=== PATIENT | male | born 1945 | race Caucasian/White ===

== ENCOUNTER 2018-11-04 20:59 | Inpatient (IN) | payer MEDICARE, MEDICAID, OTHER ==
[~2018-11-04] VITALS: Ht 162.6 cm; Wt 52.8 kg
[2018-11-04] MEDS ORDERED: ALBUTEROL (0.083%) 2.5MG/3ML NEB HHN STA (21:47)
[2018-11-04] MEDS ORDERED: IPRATROPIUM BROMIDE (0.02%) 0.5MG/2.5ML NEB HHN STA (21:47)
[2018-11-04] MEDS ORDERED: METHYLPREDNISOLONE SOD SUCC 125 MG/2 ML VIAL IV STA (21:47)
[2018-11-04] MEDS ORDERED: LEVOFLOXACIN 500MG PREMIX 100 ML IV ONE (22:00)
[2018-11-04] MEDS ORDERED: SODIUM CHLORIDE 0.9% 1000ML BAG (SEPSIS BOLUS) IV ONE (22:00)
[2018-11-04] MEDS ORDERED: PIPERACILLIN/TAZ 3.375G PREMIX 50 ML IV ONE (22:00)
[2018-11-04 22:16] LABS: BASOPHILS % 0.5 % (0.0-2.0); EOSINOPHILS % 0.6 % (0.0-5.0); HEMOGLOBIN. 14.3 g/dL (14.0-18.0); LYMPHOCYTES % 22.9 % (20.0-50.0); MEAN CORPUSCULAR HEMOGLOBIN 28.9 pg (28.0-32.0); MEAN CORPUSCULAR VOLUME 88.8 fL (80.0-94.0); MEAN PLATELET VOLUME 9.5 fl (7.4-10.4); MONOCYTES % 7.4 % (2.0-8.0); NEUTROPHILS % 68.6 % (40.0-76.0); PLATELET 212 x1000/uL (130-400); RED BLOOD CELL COUNT 4.96 mill/uL (4.7-6.1)
[2018-11-04 22:25] LABS: INR 1.1; PARTIAL THROMBOPLASTIN TIME 28.2 sec (23.4-31.0); PROTHROMBIN TIME 11.4 sec (9.1-11.1)
[2018-11-04 22:28] LABS: CHLORIDE 113 mEq/L (98-107)
[2018-11-04 22:31] LABS: CLARITY URINE CLEAR (CLEAR); COLOR URINE DARK YELLOW (YELLOW); KETONES URINE TRACE (NEGATIVE); LEUKOCYTE ESTERASE URINE NEGATIVE (NEGATIVE); NITRITE URINE NEGATIVE (NEGATIVE); OCCULT BLOOD URINE TRACE (NEGATIVE); PROTEIN URINE NEGATIVE (NEGATIVE)
[2018-11-04] MEDS ORDERED: LORAZEPAM 2MG/ML CPJ IV ONE (23:00)
[2018-11-05] VITALS (8 sets, daily range): BP systolic 106–140; BP diastolic 60–82
[2018-11-05] MEDS ORDERED: MORPHINE SULFATE 4 MG/ML CPJ (NOT FOR IM USE) IV PRN (05:15)
[2018-11-05] MEDS ORDERED: ONDANSETRON HCL 4MG/2ML INJ IV PRN (05:30)
[2018-11-05] MEDS ORDERED: DEXT 5%/0.45% NACL KCL 20MEQ/L 1,000 ML IV SCH (06:00)
[2018-11-05] MEDS: DEXT 5%/0.45% NACL KCL 20MEQ/L 1,000 ML IV SCH (06:05)
[2018-11-05] MEDS: IPRATROPIUM/ALBUTEROL 0.5-3(2.5)MG/3ML NEB HHN SCH ×4 (08:00→21:10)
[2018-11-05] MEDS ORDERED: PIPERACILLIN/TAZ 3.375G PREMIX 50 ML IV SCH ×2 (08:00→09:00)
[2018-11-05] MEDS: BUDESONIDE 0.5MG/2ML NEB HHN SCH ×3 (08:30→21:10)
[2018-11-05] MEDS ORDERED: VANCOMYCIN 750 MG PREMIX 150 ML IV NR (09:00)
[2018-11-05] MEDS ORDERED: CALC-775 PO (10:30)
[2018-11-05] MEDS ORDERED: LEVO500T2 PO (10:30)
[2018-11-05] MEDS ORDERED: LACT10SO7 PO (10:30)
[2018-11-05] MEDS ORDERED: PANT40TA4 PO (10:30)
[2018-11-05] MEDS ORDERED: ASPI-1158 PO (10:30)
[2018-11-05] MEDS ORDERED: MULT-1116 PO (10:30)
[2018-11-05] MEDS ORDERED: FINA5TAB11 MT (11:27)
[2018-11-05] MEDS ORDERED: TAMS-11 PO (11:27)
[2018-11-05] MEDS ORDERED: DOCU100T PO (11:29)
[2018-11-05] MEDS ORDERED: VANCOMYCIN 500 MG PREMIX 100 ML IV SCH (18:00)
[2018-11-06] VITALS (12 sets, daily range): BP systolic 114–163; BP diastolic 39–86
[2018-11-06] MEDS: IPRATROPIUM/ALBUTEROL 0.5-3(2.5)MG/3ML NEB HHN SCH ×5 (00:26→21:02)
[2018-11-06] MEDS: DEXT 5%/0.45% NACL KCL 20MEQ/L 1,000 ML IV SCH ×3 (03:18→22:15)
[2018-11-06 06:31] LABS: BASOPHILS % 0.3 % (0.0-2.0); EOSINOPHILS % 0.2 % (0.0-5.0); HEMATOCRIT. 35.3 % (42.0-52.0); HEMOGLOBIN. 11.3 g/dL (14.0-18.0); LYMPHOCYTES % 16.3 % (20.0-50.0); MEAN PLATELET VOLUME 10.3 fl (7.4-10.4); MONOCYTES % 6.6 % (2.0-8.0); NEUTROPHILS % 76.6 % (40.0-76.0); PLATELET 177 x1000/uL (130-400); RED BLOOD CELL COUNT 4.05 mill/uL (4.7-6.1); RED CELL DISTRIBUTION WIDTH 15.7 % (11.6-14.6)
[2018-11-06 06:36] LABS: CHLORIDE 111 mEq/L (98-107)
[2018-11-06] MEDS: BUDESONIDE 0.5MG/2ML NEB HHN SCH ×2 (07:20→21:02)
[2018-11-06] MEDS ORDERED: LACTULOSE 20G/30ML UDC NG PRN (18:45)
[2018-11-06] MEDS ORDERED: DOCUSATE SODIUM 250MG CAPSULE PO SCH (18:45)
[2018-11-07] VITALS (12 sets, daily range): BP systolic 112–166; BP diastolic 43–88
[2018-11-07] MEDS: IPRATROPIUM/ALBUTEROL 0.5-3(2.5)MG/3ML NEB HHN SCH ×6 (00:33→20:45)
[2018-11-07 07:17] LABS: BASOPHILS % 0.3 % (0.0-2.0); EOSINOPHILS % 0.4 % (0.0-5.0); HEMATOCRIT. 36.9 % (42.0-52.0); HEMOGLOBIN. 12.2 g/dL (14.0-18.0); LYMPHOCYTES % 12.4 % (20.0-50.0); MEAN CORPUSCULAR HEMOGLOBIN 28.6 pg (28.0-32.0); MEAN CORPUSCULAR VOLUME 86.5 fL (80.0-94.0); MEAN PLATELET VOLUME 9.5 fl (7.4-10.4); MONOCYTES % 6.7 % (2.0-8.0); NEUTROPHILS % 80.2 % (40.0-76.0); PLATELET 192 x1000/uL (130-400); RED BLOOD CELL COUNT 4.27 mill/uL (4.7-6.1); RED CELL DISTRIBUTION WIDTH 15.6 % (11.6-14.6)
[2018-11-07] MEDS: BUDESONIDE 0.5MG/2ML NEB HHN SCH ×2 (07:19→20:45)
[2018-11-07 07:58] LABS: CHLORIDE 104 mEq/L (98-107)
[2018-11-07] MEDS: DOCUSATE SODIUM SUGAR FREE 100MG/10ML UDC NG SCH (09:11)
[2018-11-07] MEDS: DEXT 5%/0.45% NACL KCL 20MEQ/L 1,000 ML IV SCH (12:24)
[2018-11-08] VITALS (8 sets, daily range): BP systolic 99–123; BP diastolic 54–85
[2018-11-08] MEDS: IPRATROPIUM/ALBUTEROL 0.5-3(2.5)MG/3ML NEB HHN SCH ×6 (00:53→20:45)
[2018-11-08] MEDS: DEXT 5%/0.45% NACL KCL 20MEQ/L 1,000 ML IV SCH ×2 (02:01→20:37)
[2018-11-08] MEDS: DOCUSATE SODIUM SUGAR FREE 100MG/10ML UDC NG SCH (10:44)
[2018-11-09] VITALS (7 sets, daily range): BP systolic 83–112; BP diastolic 48–69
[2018-11-09] MEDS: IPRATROPIUM/ALBUTEROL 0.5-3(2.5)MG/3ML NEB HHN SCH ×6 (01:46→20:29)
[2018-11-09] MEDS ORDERED: BUDESONIDE 0.5MG/2ML NEB ONE (07:44)
[2018-11-09] MEDS: DOCUSATE SODIUM SUGAR FREE 100MG/10ML UDC NG SCH (09:15)
[2018-11-09] MEDS: DEXT 5%/0.45% NACL KCL 20MEQ/L 1,000 ML IV SCH (11:23)
[2018-11-09] MEDS ORDERED: LORAZEPAM 2MG/ML CPJ IM PRN (14:45)
[2018-11-09] MEDS: PANTOPRAZOLE SODIUM 40 MG/VIAL IV SCH (21:03)
[2018-11-10] MEDS: IPRATROPIUM/ALBUTEROL 0.5-3(2.5)MG/3ML NEB HHN SCH ×6 (00:42→20:13)
[2018-11-10 04:00] VITALS: BP 122/73
[2018-11-10] MEDS: DEXT 5%/0.45% NACL KCL 20MEQ/L 1,000 ML IV SCH ×2 (06:57→22:57)
[2018-11-10 08:10] VITALS: BP 117/63
[2018-11-10] MEDS: DOCUSATE SODIUM SUGAR FREE 100MG/10ML UDC NG SCH (09:00)
[2018-11-10] MEDS: PANTOPRAZOLE SODIUM 40 MG/VIAL IV SCH ×2 (09:39→20:47)
[2018-11-10 12:55] VITALS: BP 105/55
[2018-11-10] MEDS ORDERED: SODIUM CHLORIDE 0.9% 10ML VIAL ONE (15:40)
[2018-11-10 16:27] LABS: CHLORIDE 103 mEq/L (98-107)
[2018-11-10] MEDS ORDERED: CEFAZOLIN 1000MG PREMIX 50 ML IV SCH (16:50)
[2018-11-10] MEDS ORDERED: FENTANYL CITRATE/PF 50MCG/ML 2ML VIAL ONE (16:55)
[2018-11-10] MEDS ORDERED: MIDAZOLAM HCL 5 MG/5 ML VIAL IV PRN (16:55)
[2018-11-10] MEDS ORDERED: MIDAZOLAM HCL 5 MG/5 ML VIAL ONE (16:55)
[2018-11-10] MEDS ORDERED: FENTANYL CITRATE/PF 50MCG/ML 2ML VIAL IV PRN (16:56)
[2018-11-10] MEDS ORDERED: CEFAZOLIN 1000MG PREMIX 50 ML IV ONE (16:57)
[2018-11-10] MEDS ORDERED: RISP1TAB26 PO (17:15)
[2018-11-10] MEDS ORDERED: PHEN300C6 PO (17:15)
[2018-11-10] MEDS ORDERED: DIVA-75 PO (17:15)
[2018-11-10] MEDS ORDERED: FERR325T6 PO (17:15)
[2018-11-10] MEDS: ENOXAPARIN 40MG/0.4ML SYR SUBCUT SCH (18:36)
[2018-11-10 19:36] VITALS: BP 124/79
[2018-11-10 20:22] LABS: HEMATOCRIT 37.9 % (42.0-52.0); HEMOGLOBIN 12.3 g/dL (14.0-18.0); MEAN CORPUSCULAR HEMOGLOBIN 28.5 pg (28.0-32.0); PLATELET 244 x1000/uL (130-400); RED BLOOD CELL COUNT 4.31 mill/uL (4.7-6.1); RED CELL DISTRIBUTION WIDTH 15.7 % (11.6-14.6)
[2018-11-10 20:28] LABS: INR 1.1; PROTHROMBIN TIME 10.8 sec (9.1-11.1)
[2018-11-10] MEDS: DIVALPROEX SODIUM 250MG DR TABLET PO SCH (20:48)
[2018-11-10] MEDS: RISPERIDONE 1MG TABLET PO SCH (20:48)
[2018-11-10] MEDS: PHENYTOIN SODIUM EXTENDED 100MG CAPSULE PO SCH (20:48)
[2018-11-11] VITALS: BP 116/54
[2018-11-11] MEDS: IPRATROPIUM/ALBUTEROL 0.5-3(2.5)MG/3ML NEB HHN SCH ×6 (01:10→21:31)
[2018-11-11 04:00] VITALS: BP 92/65
[2018-11-11 08:30] VITALS: BP 85/52
[2018-11-11] MEDS: DEXT 5%/0.45% NACL KCL 20MEQ/L 1,000 ML IV SCH ×2 (08:40→10:24)
[2018-11-11] MEDS: RISPERIDONE 1MG TABLET PO SCH ×2 (10:05→20:49)
[2018-11-11] MEDS: DIVALPROEX SODIUM 250MG DR TABLET PO SCH ×2 (10:05→20:49)
[2018-11-11] MEDS: DOCUSATE SODIUM SUGAR FREE 100MG/10ML UDC NG SCH (10:05)
[2018-11-11] MEDS: PANTOPRAZOLE SODIUM 40 MG/VIAL IV SCH ×2 (10:10→20:49)
[2018-11-11 12:14] VITALS: BP 103/55
[2018-11-11] MEDS ORDERED: PHENYTOIN SODIUM 1,000 MG in SODIUM CHLORIDE 0.9% 100 ML IV SCH (13:00)
[2018-11-11 15:45] VITALS: BP 122/87
[2018-11-11] MEDS: ENOXAPARIN 40MG/0.4ML SYR SUBCUT SCH (18:54)
[2018-11-11 20:00] VITALS: BP 116/59
[2018-11-11] MEDS: PHENYTOIN SODIUM EXTENDED 100MG CAPSULE PO SCH (20:49)
[2018-11-12] VITALS: BP 97/54
[2018-11-12] MEDS: IPRATROPIUM/ALBUTEROL 0.5-3(2.5)MG/3ML NEB HHN SCH ×5 (01:15→21:14)
[2018-11-12 04:00] VITALS: BP 98/63
[2018-11-12 08:00] VITALS: BP 93/49
[2018-11-12] MEDS: RISPERIDONE 1MG TABLET PO SCH ×2 (08:34→20:28)
[2018-11-12] MEDS: DIVALPROEX SODIUM 250MG DR TABLET PO SCH (08:35)
[2018-11-12] MEDS: DOCUSATE SODIUM SUGAR FREE 100MG/10ML UDC NG SCH (08:35)
[2018-11-12] MEDS: PANTOPRAZOLE SODIUM 40 MG/VIAL IV SCH ×2 (08:36→20:28)
[2018-11-12] MEDS: VALPROATE SODIUM 250MG/5ML UDC PO SCH ×2 (09:30→20:34)
[2018-11-12 12:00] VITALS: BP_SYST 95; BP_DIAS 5; BP_DIAS 51
[2018-11-12 16:00] VITALS: BP 101/57
[2018-11-12] MEDS: DEXT 5%/0.45% NACL KCL 20MEQ/L 1,000 ML IV SCH (16:11)
[2018-11-12] MEDS: ENOXAPARIN 40MG/0.4ML SYR SUBCUT SCH (18:23)
[2018-11-12 20:11] VITALS: BP 100/59
[2018-11-12] MEDS: PHENYTOIN SODIUM EXTENDED 100MG CAPSULE PO SCH (20:28)
[2018-11-13 00:02] VITALS: BP 103/62
[2018-11-13] MEDS: IPRATROPIUM/ALBUTEROL 0.5-3(2.5)MG/3ML NEB HHN SCH ×6 (00:14→21:11)
[2018-11-13] MEDS: DEXT 5%/0.45% NACL KCL 20MEQ/L 1,000 ML IV SCH ×2 (01:10→12:52)
[2018-11-13 04:00] VITALS: BP 105/60
[2018-11-13 06:51] LABS: BASOPHILS % 0.6 % (0.0-2.0); EOSINOPHILS % 1.3 % (0.0-5.0); HEMOGLOBIN. 10.3 g/dL (14.0-18.0); LYMPHOCYTES % 15.4 % (20.0-50.0); MEAN CORPUSCULAR VOLUME 87.1 fL (80.0-94.0); MEAN PLATELET VOLUME 9.2 fl (7.4-10.4); MONOCYTES % 9.6 % (2.0-8.0); NEUTROPHILS % 73.1 % (40.0-76.0); PLATELET 201 x1000/uL (130-400); RED BLOOD CELL COUNT 3.56 mill/uL (4.7-6.1); RED CELL DISTRIBUTION WIDTH 15.5 % (11.6-14.6)
[2018-11-13 07:06] LABS: CHLORIDE 102 mEq/L (98-107)
[2018-11-13 08:00] VITALS: BP 110/50
[2018-11-13] MEDS: RISPERIDONE 1MG TABLET PO SCH ×2 (09:00→21:44)
[2018-11-13] MEDS: VALPROATE SODIUM 250MG/5ML UDC PO SCH ×2 (09:13→21:44)
[2018-11-13] MEDS: PANTOPRAZOLE SODIUM 40 MG/VIAL IV SCH (09:13)
[2018-11-13] MEDS: DOCUSATE SODIUM SUGAR FREE 100MG/10ML UDC NG SCH (09:19)
[2018-11-13] MEDS ORDERED: BUDESONIDE 0.5MG/2ML NEB ONE (10:04)
[2018-11-13 11:27] VITALS: BP 90/50
[2018-11-13 16:15] VITALS: BP 99/56
[2018-11-13] MEDS: ENOXAPARIN 40MG/0.4ML SYR SUBCUT SCH (19:11)
[2018-11-13 19:58] VITALS: BP 121/58
[2018-11-13] MEDS: PHENYTOIN SODIUM EXTENDED 100MG CAPSULE PO SCH (21:44)
[2018-11-14] VITALS: BP 114/61
[2018-11-14] MEDS: IPRATROPIUM/ALBUTEROL 0.5-3(2.5)MG/3ML NEB HHN SCH ×5 (00:12→17:12)
[2018-11-14 04:00] VITALS: BP 91/48
[2018-11-14] MEDS: DEXT 5%/0.45% NACL KCL 20MEQ/L 1,000 ML IV SCH (05:55)
[2018-11-14 08:00] VITALS: BP 89/49
[2018-11-14] MEDS: RISPERIDONE 1MG TABLET PO SCH (09:00)
[2018-11-14] MEDS: VALPROATE SODIUM 250MG/5ML UDC PO SCH (10:02)
[2018-11-14] MEDS: DOCUSATE SODIUM SUGAR FREE 100MG/10ML UDC NG SCH (10:04)
[2018-11-14 12:11] VITALS: BP 107/61
[2018-11-14] MEDS ORDERED: NA PHOS,M-B/NA PHOS,DI-BA ENEMA 118ML PR SCH (14:15)
[2018-11-14 15:46] VITALS: BP 96/52
[2018-11-14 16:02] VITALS: BP 96/52
== END 2018-11-14 18:26 | DRG 189 ==
LOC: ER 20:59 → 3WST 23:00 → EDBEDREQSVC 23:22 → EDBEDREQ 23:22 → EDBEDREQTM 23:22 → EDBEDREQSVC 23:34 → EDBEDREQTM 23:34 → ENRESERV 11-05 02:42 → 3WST 11-05 04:42 → 6WST 11-08 08:18
PROVIDERS: ADMIT Internal Medicine; ATTEND Internal Medicine
PROC: 0DH63UZ Insertion of Feeding Device into Stomach, Percutaneous Approach (ICD-10-PCS; principal; 2018-11-10)
DX: J96.01 Acute respiratory failure with hypoxia (principal); E43 Unspecified severe protein-calorie malnutrition; E87.0 Hyperosmolality and hypernatremia; J44.1 Chronic obstructive pulmonary disease with (acute) exacerbation; E87.8 Other disorders of electrolyte and fluid balance, not elsewhere classified; G80.9 Cerebral palsy, unspecified; R13.12 Dysphagia, oropharyngeal phase; Z68.20 Body mass index [BMI] 20.0-20.9, adult
CPT/HCPCS: 36415; 71045; 80048; 80185; 82962; 83605; 83880; 84145; 84484; 85027; 87804; 92610; 93005; 93970; 94640; 96365; 96366; 96368; 96375; 97162; 99291; A6261; C1893; C9113; J0690; J1165; J1650; J1956; J2060; J2250; J2270; J2405; J2543; J2930; J3010; J3370; J7030; J7050; J7611; J7620; J7626

== ENCOUNTER 2019-05-15 08:30 | Inpatient (IN) | payer MEDICAID, MEDICARE, OTHER ==
[2019-05-15] VITALS (41 sets, daily range): BP systolic 60–163; BP diastolic 36–85
[~2019-05-15] VITALS: Ht 165.1 cm; Wt 55.5 kg
[~2019-05-15 08:30] MED LIST: ASPI-1158 GT; CALC-775 GT; DIVA-75 GT; DOCU100T GT; FERR325T6 PO; FINA5TAB11 GT; MULT-1116 GT; PANT40TA4 GT; PHEN300C6 GT; RISP1TAB26 PO; TAMS-11 GT
[2019-05-15] MEDS ORDERED: SODIUM CHLORIDE 0.9% 1,000 ML IV ONE (08:34)
[2019-05-15] MEDS ORDERED: ONDANSETRON HCL 4MG/2ML INJ IV STA (08:34)
[2019-05-15] MEDS ORDERED: PANTOPRAZOLE SODIUM 40 MG/VIAL IV ONE (08:45)
[2019-05-15] MEDS ORDERED: KETAMINE HCL 50 MG/ML 10ML IV ONE (08:45)
[2019-05-15] MEDS ORDERED: VECURONIUM BROMIDE 10 MG/VIAL IV ONE (09:00)
[2019-05-15 09:02] LABS: BASOPHILS % 0.5 % (0.0-2.0); HEMATOCRIT. 35.8 % (42.0-52.0); HEMOGLOBIN. 11.3 g/dL (14.0-18.0); LYMPHOCYTES % 11.1 % (20.0-50.0); MEAN CORPUSCULAR HEMOGLOBIN 27.1 pg (28.0-32.0); MEAN CORPUSCULAR VOLUME 86.2 fL (80.0-94.0); MEAN PLATELET VOLUME 11.1 fl (7.4-10.4); MONOCYTES % 7.8 % (2.0-8.0); NEUTROPHILS % 80.6 % (40.0-76.0); PLATELET 305 x1000/uL (130-400); RED BLOOD CELL COUNT 4.15 mill/uL (4.7-6.1); RED CELL DISTRIBUTION WIDTH 14.5 % (11.6-14.6)
[2019-05-15 09:11] LABS: CHLORIDE 102 mEq/L (98-107)
[2019-05-15 09:12] LABS: PROTHROMBIN TIME 10.7 sec (9.6-11.0)
[2019-05-15] MEDS ORDERED: NOREPINEPHRINE 4MG/250ML PMX 250 ML IV ONE ×2 (09:13→13:36)
[2019-05-15] MEDS ORDERED: NOREPINEPHRINE 4 MG in DEXT 5% WATER 246 ML IV ONE ×2 (09:15→14:00)
[2019-05-15] MEDS ORDERED: EPINEPHRINE 0.1MG/ML (1:10,000) 10ML SYR IV ONE (09:15)
[2019-05-15 09:37] LABS: CLARITY URINE CLEAR (CLEAR); COLOR URINE YELLOW (YELLOW); KETONES URINE TRACE (NEGATIVE); LEUKOCYTE ESTERASE URINE NEGATIVE (NEGATIVE); NITRITE URINE NEGATIVE (NEGATIVE); OCCULT BLOOD URINE NEGATIVE (NEGATIVE); PROTEIN URINE NEGATIVE (NEGATIVE); SPECIFIC GRAVITY URINE 1.032 (1.005-1.030); UROBILINOGEN URINE 0.2 E.U./dL (0.2-1.0)
[2019-05-15] MEDS ORDERED: PROPOFOL 10MG/ML 100ML 100 ML IV ONE ×2 (10:00→14:56)
[2019-05-15] MEDS ORDERED: IPRATROPIUM/ALBUTEROL 0.5-3(2.5)MG/3ML NEB HHN PRN (10:30)
[2019-05-15] MEDS ORDERED: MIDAZOLAM HCL 50 MG in DEXTROSE 5% WATER 40 ML IV PRN ×2 (10:30→15:00)
[2019-05-15] MEDS ORDERED: FENTANYL CITRATE/PF 500 MCG in SODIUM CHLORIDE 0.9% 40 ML IV PRN (10:30)
[2019-05-15 10:54] LABS: BG BASE EXCESS 1.6 mmol/L (-2.0-2.0); BG CARBOXYHEMOGLOBIN 0.1 % (0.5-1.5); BG DEOXYHEMOGLOBIN 0.7 % (0.0-5.0); BG FRACTION INSPIRED OXYGEN 80; BG METHEMOGLOBIN 0.4 % (0.0-1.5); BG OXYGEN SATURATION 99.3 % (92.0-98.5); BG OXYHEMOGLOBIN 98.8 % (94.0-97.0); BG PCO2 51.9 mmHg (35.0-45.0); BG PO2 308.5 mmHg (75.0-100.0); BG SAMPLE SITE RIGHT RADIAL; BG TIDAL VOLUME(mL) 500 mL; BG TOTAL HEMOGLOBIN 12.2 g/dL (12.0-18.0); BG VENT MODE VENT - A/C; BG VENT RATE 14 set
[2019-05-15] MEDS ORDERED: MIDAZOLAM HCL 50 MG in DEXTROSE 5% WATER 40 ML IV ONE (11:15)
[2019-05-15] MEDS ORDERED: DIPHENHYDRAMINE 50MG/ML VIAL IV PRN (12:15)
[2019-05-15] MEDS ORDERED: ACETAMINOPHEN 650MG SUPP PR PRN (12:15)
[2019-05-15] MEDS ORDERED: LIDOCAINE HCL 1% 20ML VIAL (Pyxis) INJ ONE (12:39)
[2019-05-15] MEDS ORDERED: SODIUM BICARBONATE 4% (2.4MEQ) 5ML VIAL IV ONE (12:39)
[2019-05-15 12:49] LABS: PHOSPHORUS 2.8 mg/dL (2.5-4.9)
[2019-05-15 14:59] LABS: *AMPHETAMINES SCREEN URINE NEGATIVE (NEGATIVE); *BARBITURATES SCREEN URINE NEGATIVE (NEGATIVE); CANNABINOID URINE SCREEN NEGATIVE (NEGATIVE); OPIATES URINE SCREEN NEGATIVE (NEGATIVE)
[2019-05-15 15:00] LABS: *BENZODIAZEPINES SCREEN URINE NEGATIVE (NEGATIVE); *COCAINE SCREEN URINE NEGATIVE (NEGATIVE); METHADONE URINE SCREEN NEGATIVE (NEGATIVE); PHENCYCLIDINE URINE SCREEN NEGATIVE (NEGATIVE)
[2019-05-15] MEDS ORDERED: DEXTROSE 50% WATER 50ML SYRINGE IV PRN (15:00)
[2019-05-15] MEDS ORDERED: IOHEXOL-300 100 ML BOTTLE ONE (15:15)
[2019-05-15] MEDS: PANTOPRAZOLE SODIUM 40 MG/VIAL IV SCH (16:46)
[2019-05-15] MEDS: SODIUM CHLORIDE 0.9% 1,000 ML IV SCH (16:46)
[2019-05-15] MEDS: MIDAZOLAM HCL 50 MG in DEXTROSE 5% WATER 40 ML IV PRN (16:50)
[2019-05-15] MEDS: FENTANYL CITRATE/PF 500 MCG in SODIUM CHLORIDE 0.9% 40 ML IV PRN (16:52)
[2019-05-15] MEDS ORDERED: FAMOTIDINE 20MG/2ML VIAL IV SCH (17:00)
[2019-05-15] MEDS ORDERED: DIPHENHYDRAMINE 50MG/ML VIAL IM SCH (17:00)
[2019-05-15] MEDS: METHYLPREDNISOLONE SOD SUCC 125 MG/2 ML VIAL IV SCH (17:26)
[2019-05-15] MEDS: BLOOD SUGAR DIAGNOSTIC STRIP TEST SCH (17:34)
[2019-05-15] MEDS: INSULIN LISPRO 100 UNITS/ML SUBCUT SCH (17:35)
[2019-05-15] MEDS: NOREPINEPHRINE 16 MG in DEXT 5% WATER 234 ML IV PRN (17:39)
[2019-05-15] MEDS: PIPERACILLIN/TAZOBACTAM 3.375 G in DEXT 5% WATER 100 ML IV SCH ×2 (17:39→23:01)
[2019-05-15] MEDS: VANCOMYCIN 1 G PREMIX 200 ML IV SCH ×2 (19:28→19:43)
[2019-05-15] MEDS: IPRATROPIUM/ALBUTEROL 0.5-3(2.5)MG/3ML NEB HHN SCH ×2 (20:00→23:50)
[2019-05-15 20:09] LABS: HEMATOCRIT 35.6 % (42.0-52.0); HEMOGLOBIN 11.7 g/dL (14.0-18.0)
[2019-05-15 20:19] LABS: CREATINE KINASE 21 IU/L (39-308)
[2019-05-15 20:20] LABS: CREATINE KINASE MB FRACTION < 1.0 ng/mL (0.5-3.6)
[2019-05-15] MEDS: DIPHENHYDRAMINE 50MG/ML VIAL IV SCH (23:01)
[2019-05-15 23:13] LABS: CREATINE KINASE 17 IU/L (39-308)
[2019-05-15 23:14] LABS: CREATINE KINASE MB FRACTION < 1.0 ng/mL (0.5-3.6)
[2019-05-16] VITALS (93 sets, daily range): BP systolic 74–158; BP diastolic 42–87
[2019-05-16] MEDS: BLOOD SUGAR DIAGNOSTIC STRIP TEST SCH ×2 (00:22→05:30)
[2019-05-16] MEDS: INSULIN LISPRO 100 UNITS/ML SUBCUT SCH ×2 (00:22→05:30)
[2019-05-16] MEDS: METHYLPREDNISOLONE SOD SUCC 125 MG/2 ML VIAL IV SCH ×3 (00:36→17:04)
[2019-05-16] MEDS: IPRATROPIUM/ALBUTEROL 0.5-3(2.5)MG/3ML NEB HHN SCH ×5 (04:01→20:43)
[2019-05-16 05:06] LABS: HEMATOCRIT. 34.1 % (42.0-52.0); HEMOGLOBIN. 11.3 g/dL (14.0-18.0); MEAN CORPUSCULAR HEMOGLOBIN 28.1 pg (28.0-32.0); MEAN PLATELET VOLUME 10.6 fl (7.4-10.4); PLATELET 180 x1000/uL (130-400); RED BLOOD CELL COUNT 4.01 mill/uL (4.7-6.1); RED CELL DISTRIBUTION WIDTH 15.1 % (11.6-14.6)
[2019-05-16 05:12] LABS: CHLORIDE 106 mEq/L (98-107)
[2019-05-16 05:19] LABS: LDL CHOLESTEROL 38 mg/dL (5-100)
[2019-05-16 05:20] LABS: HDL CHOLESTEROL 50 mg/dL (40-59)
[2019-05-16] MEDS: PIPERACILLIN/TAZOBACTAM 3.375 G in DEXT 5% WATER 100 ML IV SCH ×3 (05:20→17:04)
[2019-05-16] MEDS: SODIUM CHLORIDE 0.9% 1,000 ML IV SCH (05:27)
[2019-05-16] MEDS: DIPHENHYDRAMINE 50MG/ML VIAL IV SCH ×4 (05:33→22:01)
[2019-05-16 08:26] LABS: BG BASE EXCESS -2.4 mmol/L (-2.0-2.0); BG CARBOXYHEMOGLOBIN 0.3 % (0.5-1.5); BG DEOXYHEMOGLOBIN 2.1 % (0.0-5.0); BG FRACTION INSPIRED OXYGEN 40; BG HCO3 ACT 21.4 mmol/L (22.0-26.0); BG OXYGEN SATURATION 97.9 % (92.0-98.5); BG OXYHEMOGLOBIN 96.6 % (94.0-97.0); BG PCO2 33.8 mmHg (35.0-45.0); BG PO2 127.6 mmHg (75.0-100.0); BG SAMPLE SITE RIGHT RADIAL; BG TIDAL VOLUME(mL) 500 mL; BG TOTAL HEMOGLOBIN 11.3 g/dL (12.0-18.0); BG VENT MODE VENT - A/C; BG VENT RATE 14 set
[2019-05-16] MEDS: FENTANYL CITRATE/PF 500 MCG in SODIUM CHLORIDE 0.9% 40 ML IV PRN (08:27)
[2019-05-16] MEDS: MIDAZOLAM HCL 50 MG in DEXTROSE 5% WATER 40 ML IV PRN ×2 (08:27→17:13)
[2019-05-16] MEDS: VANCOMYCIN 750 MG PREMIX 150 ML IV SCH ×2 (09:03→21:14)
[2019-05-16] MEDS: PANTOPRAZOLE SODIUM 40 MG/VIAL IV SCH ×2 (09:04→17:04)
[2019-05-16 09:56] LABS: PLATELET ESTIMATE NORMAL
[2019-05-16] MEDS ORDERED: PHENYTOIN SODIUM EXTENDED 100MG CAPSULE PO SCH (11:00)
[2019-05-16 13:08] LABS: HEMATOCRIT 29.1 % (42.0-52.0); HEMOGLOBIN 9.7 g/dL (14.0-18.0)
[2019-05-16] MEDS ORDERED: DIVALPROEX SODIUM 250MG DR TABLET PO SCH (21:00)
[2019-05-16] MEDS: VALPROATE SODIUM 250MG/5ML UDC GT SCH (21:57)
[2019-05-17] VITALS (92 sets, daily range): BP systolic 79–170; BP diastolic 45–98
[2019-05-17] MEDS: FENTANYL CITRATE/PF 500 MCG in SODIUM CHLORIDE 0.9% 40 ML IV PRN ×3 (00:04→18:50)
[2019-05-17] MEDS: METHYLPREDNISOLONE SOD SUCC 125 MG/2 ML VIAL IV SCH ×3 (00:05→16:12)
[2019-05-17] MEDS: PIPERACILLIN/TAZOBACTAM 3.375 G in DEXT 5% WATER 100 ML IV SCH ×5 (00:07→23:31)
[2019-05-17] MEDS: IPRATROPIUM/ALBUTEROL 0.5-3(2.5)MG/3ML NEB HHN SCH ×6 (00:41→20:25)
[2019-05-17] MEDS: MIDAZOLAM HCL 50 MG in DEXTROSE 5% WATER 40 ML IV PRN ×3 (02:20→18:50)
[2019-05-17] MEDS: DIPHENHYDRAMINE 50MG/ML VIAL IV SCH ×4 (04:56→23:31)
[2019-05-17] MEDS: VALPROATE SODIUM 250MG/5ML UDC GT SCH ×3 (05:01→22:45)
[2019-05-17] MEDS: SODIUM CHLORIDE 0.9% 1,000 ML IV SCH ×2 (05:10→14:07)
[2019-05-17 05:44] LABS: HEMOGLOBIN. 9.5 g/dL (14.0-18.0); MEAN CORPUSCULAR VOLUME 85.4 fL (80.0-94.0); MEAN PLATELET VOLUME 10.5 fl (7.4-10.4); PLATELET 159 x1000/uL (130-400); RED BLOOD CELL COUNT 3.28 mill/uL (4.7-6.1); RED CELL DISTRIBUTION WIDTH 14.6 % (11.6-14.6)
[2019-05-17 05:55] LABS: CHLORIDE 106 mEq/L (98-107)
[2019-05-17] MEDS: VANCOMYCIN 750 MG PREMIX 150 ML IV SCH (08:01)
[2019-05-17] MEDS: PHENYTOIN 100 MG/4 ML UDC NG SCH (09:31)
[2019-05-17] MEDS: PANTOPRAZOLE SODIUM 40 MG/VIAL IV SCH ×2 (09:31→16:12)
[2019-05-17 12:01] LABS: PLATELET ESTIMATE NORMAL
[2019-05-17] MEDS: VANCOMYCIN 1 G PREMIX 200 ML IV SCH (18:11)
[2019-05-17] MEDS: NOREPINEPHRINE 16 MG in DEXT 5% WATER 234 ML IV PRN (19:21)
[2019-05-18] VITALS (101 sets, daily range): BP systolic 76–150; BP diastolic 43–103
[2019-05-18] MEDS: IPRATROPIUM/ALBUTEROL 0.5-3(2.5)MG/3ML NEB HHN SCH ×6 (00:40→20:21)
[2019-05-18] MEDS: METHYLPREDNISOLONE SOD SUCC 125 MG/2 ML VIAL IV SCH (02:04)
[2019-05-18] MEDS: PIPERACILLIN/TAZOBACTAM 3.375 G in DEXT 5% WATER 100 ML IV SCH ×3 (05:14→18:29)
[2019-05-18] MEDS: VALPROATE SODIUM 250MG/5ML UDC GT SCH ×3 (05:14→22:08)
[2019-05-18 05:17] LABS: BASOPHILS % 0.1 % (0.0-2.0); HEMATOCRIT. 33.7 % (42.0-52.0); HEMOGLOBIN. 11.2 g/dL (14.0-18.0); MEAN CORPUSCULAR HEMOGLOBIN 28.9 pg (28.0-32.0); MEAN CORPUSCULAR VOLUME 87.3 fL (80.0-94.0); MEAN PLATELET VOLUME 10.9 fl (7.4-10.4); MONOCYTES % 5.7 % (2.0-8.0); NEUTROPHILS % 80.2 % (40.0-76.0); PLATELET 170 x1000/uL (130-400); RED BLOOD CELL COUNT 3.87 mill/uL (4.7-6.1)
[2019-05-18] MEDS: SODIUM CHLORIDE 0.9% 1,000 ML IV SCH ×2 (05:17→23:33)
[2019-05-18 05:26] LABS: CHLORIDE 105 mEq/L (98-107)
[2019-05-18 05:42] LABS: PARTIAL THROMBOPLASTIN TIME 27.8 sec (23.4-31.0); PROTHROMBIN TIME 10.8 sec (9.6-11.0)
[2019-05-18] MEDS: DIPHENHYDRAMINE 50MG/ML VIAL IV SCH ×4 (05:49→22:08)
[2019-05-18] MEDS: VANCOMYCIN 1 G PREMIX 200 ML IV SCH ×2 (05:49→17:00)
[2019-05-18] MEDS: MIDAZOLAM HCL 50 MG in DEXTROSE 5% WATER 40 ML IV PRN ×2 (06:25→13:39)
[2019-05-18] MEDS: FENTANYL CITRATE/PF 500 MCG in SODIUM CHLORIDE 0.9% 40 ML IV PRN ×2 (07:36→17:53)
[2019-05-18] MEDS: PHENYTOIN 100 MG/4 ML UDC NG SCH (09:04)
[2019-05-18] MEDS: PANTOPRAZOLE SODIUM 40 MG/VIAL IV SCH ×2 (09:04→16:16)
[2019-05-18 09:59] LABS: BG CARBOXYHEMOGLOBIN 0.3 % (0.5-1.5); BG DEOXYHEMOGLOBIN 2.3 % (0.0-5.0); BG FRACTION INSPIRED OXYGEN 40; BG HCO3 ACT 23.6 mmol/L (22.0-26.0); BG METHEMOGLOBIN 0.1 % (0.0-1.5); BG OXYGEN SATURATION 97.7 % (92.0-98.5); BG OXYHEMOGLOBIN 97.3 % (94.0-97.0); BG PCO2 30.9 mmHg (35.0-45.0); BG PO2 109.6 mmHg (75.0-100.0); BG SAMPLE SITE RIGHT RADIAL; BG TIDAL VOLUME(mL) 500 mL; BG TOTAL HEMOGLOBIN 11.2 g/dL (12.0-18.0); BG VENT MODE VENT - A/C; BG VENT RATE 14 set
[2019-05-18] MEDS: METHYLPREDNISOLONE SOD SUCC 40 MG/ML VIAL IV SCH (16:16)
[2019-05-19] VITALS (87 sets, daily range): BP systolic 75–173; BP diastolic 38–109
[2019-05-19] MEDS: PIPERACILLIN/TAZOBACTAM 3.375 G in DEXT 5% WATER 100 ML IV SCH ×5 (00:07→23:41)
[2019-05-19] MEDS: METHYLPREDNISOLONE SOD SUCC 40 MG/ML VIAL IV SCH ×3 (00:07→21:30)
[2019-05-19] MEDS: IPRATROPIUM/ALBUTEROL 0.5-3(2.5)MG/3ML NEB HHN SCH ×6 (00:29→20:00)
[2019-05-19] MEDS: MIDAZOLAM HCL 50 MG in DEXTROSE 5% WATER 40 ML IV PRN ×2 (00:35→09:27)
[2019-05-19] MEDS: FENTANYL CITRATE/PF 500 MCG in SODIUM CHLORIDE 0.9% 40 ML IV PRN ×2 (00:37→19:49)
[2019-05-19] MEDS: VANCOMYCIN 1 G PREMIX 200 ML IV SCH (05:01)
[2019-05-19] MEDS: DIPHENHYDRAMINE 50MG/ML VIAL IV SCH ×4 (05:01→23:41)
[2019-05-19 05:20] LABS: HEMATOCRIT. 30.9 % (42.0-52.0); HEMOGLOBIN. 10.1 g/dL (14.0-18.0); MEAN CORPUSCULAR HEMOGLOBIN 28.6 pg (28.0-32.0); MEAN CORPUSCULAR VOLUME 87.4 fL (80.0-94.0); MEAN PLATELET VOLUME 9.8 fl (7.4-10.4); MONOCYTES % 5.9 % (2.0-8.0); NEUTROPHILS % 86.1 % (40.0-76.0); PLATELET 216 x1000/uL (130-400); RED BLOOD CELL COUNT 3.54 mill/uL (4.7-6.1)
[2019-05-19 05:30] LABS: CHLORIDE 107 mEq/L (98-107)
[2019-05-19] MEDS: VALPROATE SODIUM 250MG/5ML UDC GT SCH ×3 (06:29→21:30)
[2019-05-19] MEDS ORDERED: SIMETHICONE 40 MG/0.6 ML 30ML ONE (07:44)
[2019-05-19] MEDS ORDERED: MIDAZOLAM HCL 5 MG/5 ML VIAL ONE (07:50)
[2019-05-19] MEDS ORDERED: FENTANYL CITRATE/PF 50MCG/ML 2ML VIAL ONE (07:50)
[2019-05-19] MEDS ORDERED: MIDAZOLAM HCL 2 MG/2 ML VIAL IV PRN (08:50)
[2019-05-19 09:12] LABS: BG BASE EXCESS -0.4 mmol/L (-2.0-2.0); BG CARBOXYHEMOGLOBIN 0.3 % (0.5-1.5); BG DEOXYHEMOGLOBIN 0.8 % (0.0-5.0); BG FRACTION INSPIRED OXYGEN 100; BG HCO3 ACT 22.1 mmol/L (22.0-26.0); BG METHEMOGLOBIN 0.4 % (0.0-1.5); BG OXYGEN SATURATION 99.2 % (92.0-98.5); BG OXYHEMOGLOBIN 98.5 % (94.0-97.0); BG PCO2 29.6 mmHg (35.0-45.0); BG PO2 311.2 mmHg (75.0-100.0); BG SAMPLE SITE LEFT RADIAL; BG TIDAL VOLUME(mL) 500 mL; BG TOTAL HEMOGLOBIN 12.3 g/dL (12.0-18.0); BG VENT MODE VENT - A/C; BG VENT RATE 12 set
[2019-05-19] MEDS: PHENYTOIN 100 MG/4 ML UDC NG SCH (09:27)
[2019-05-19] MEDS: PANTOPRAZOLE SODIUM 40 MG/VIAL IV SCH ×2 (09:27→16:34)
[2019-05-19] MEDS ORDERED: BACTERIOSTATIC SODIUM CHLORIDE 0.9% 30ML VIAL IJ ONE (10:46)
[2019-05-19 11:40] LABS: BG BASE EXCESS 0.4 mmol/L (-2.0-2.0); BG CARBOXYHEMOGLOBIN 0.1 % (0.5-1.5); BG DEOXYHEMOGLOBIN 3.5 % (0.0-5.0); BG FRACTION INSPIRED OXYGEN 40; BG HCO3 ACT 24.4 mmol/L (22.0-26.0); BG METHEMOGLOBIN 0.2 % (0.0-1.5); BG OXYGEN SATURATION 96.5 % (92.0-98.5); BG OXYHEMOGLOBIN 96.2 % (94.0-97.0); BG PCO2 36.9 mmHg (35.0-45.0); BG PH 7.438 (7.350-7.450); BG PO2 88.8 mmHg (75.0-100.0); BG PRESSURE SUPPORT 8; BG SAMPLE SITE RIGHT RADIAL; BG TOTAL HEMOGLOBIN 12.1 g/dL (12.0-18.0); BG VENT MODE VENT - CPAP
[2019-05-19] MEDS ORDERED: LORAZEPAM 2MG/ML CPJ IV NR (13:45)
[2019-05-19] MEDS: MORPHINE SULFATE 2 MG/ML CPJ (NOT FOR IM USE) IV PRN (14:55)
[2019-05-19] MEDS: SODIUM CHLORIDE 0.9% 1,000 ML IV SCH (16:34)
[2019-05-19] MEDS: LORAZEPAM 2MG/ML CPJ IV PRN (17:23)
[2019-05-20] VITALS (89 sets, daily range): BP systolic 78–149; BP diastolic 23–102
[2019-05-20] MEDS: IPRATROPIUM/ALBUTEROL 0.5-3(2.5)MG/3ML NEB HHN SCH ×6 (00:18→21:00)
[2019-05-20] MEDS: MIDAZOLAM HCL 50 MG in DEXTROSE 5% WATER 40 ML IV PRN (02:26)
[2019-05-20] MEDS: PIPERACILLIN/TAZOBACTAM 3.375 G in DEXT 5% WATER 100 ML IV SCH ×4 (05:03→23:10)
[2019-05-20] MEDS: VALPROATE SODIUM 250MG/5ML UDC GT SCH ×3 (05:03→21:34)
[2019-05-20] MEDS: DIPHENHYDRAMINE 50MG/ML VIAL IV SCH ×4 (05:04→22:44)
[2019-05-20] MEDS: FENTANYL CITRATE/PF 500 MCG in SODIUM CHLORIDE 0.9% 40 ML IV PRN (05:15)
[2019-05-20] MEDS: LORAZEPAM 2MG/ML CPJ IV PRN ×3 (07:48→19:45)
[2019-05-20] MEDS: PHENYTOIN 100 MG/4 ML UDC NG SCH (08:14)
[2019-05-20] MEDS: PANTOPRAZOLE SODIUM 40 MG/VIAL IV SCH ×2 (08:14→18:20)
[2019-05-20] MEDS: METHYLPREDNISOLONE SOD SUCC 40 MG/ML VIAL IV SCH ×2 (08:14→20:29)
[2019-05-20 09:31] LABS: BG BASE EXCESS -1.7 mmol/L (-2.0-2.0); BG DEOXYHEMOGLOBIN 2.9 % (0.0-5.0); BG FRACTION INSPIRED OXYGEN 40; BG HCO3 ACT 22.7 mmol/L (22.0-26.0); BG METHEMOGLOBIN 0.3 % (0.0-1.5); BG OXYGEN SATURATION 97.1 % (92.0-98.5); BG OXYHEMOGLOBIN 96.8 % (94.0-97.0); BG PCO2 37.6 mmHg (35.0-45.0); BG PH 7.399 (7.350-7.450); BG PO2 91.8 mmHg (75.0-100.0); BG PRESSURE SUPPORT 8; BG SAMPLE SITE LEFT BRACHIAL; BG TOTAL HEMOGLOBIN 13.1 g/dL (12.0-18.0); BG VENT MODE VENT - CPAP
[2019-05-20] MEDS: SODIUM CHLORIDE 0.9% 1,000 ML IV SCH (11:04)
[2019-05-20] MEDS: MORPHINE SULFATE 2 MG/ML CPJ (NOT FOR IM USE) IV PRN ×2 (11:05→20:29)
[2019-05-20 12:16] LABS: HEMATOCRIT. 36.7 % (42.0-52.0); HEMOGLOBIN. 11.8 g/dL (14.0-18.0); MEAN CORPUSCULAR HEMOGLOBIN 28.1 pg (28.0-32.0); MEAN CORPUSCULAR VOLUME 87.1 fL (80.0-94.0); MEAN PLATELET VOLUME 9.4 fl (7.4-10.4); PLATELET 240 x1000/uL (130-400); RED BLOOD CELL COUNT 4.22 mill/uL (4.7-6.1); RED CELL DISTRIBUTION WIDTH 15.6 % (11.6-14.6)
[2019-05-20 12:57] LABS: CHLORIDE 105 mEq/L (98-107)
[2019-05-20 14:04] LABS: PLATELET ESTIMATE NORMAL
[2019-05-21] VITALS (58 sets, daily range): BP systolic 92–151; BP diastolic 57–99
[2019-05-21] MEDS: MORPHINE SULFATE 2 MG/ML CPJ (NOT FOR IM USE) IV PRN ×3 (01:09→21:37)
[2019-05-21] MEDS: SODIUM CHLORIDE 0.9% 1,000 ML IV SCH ×2 (03:12→17:45)
[2019-05-21] MEDS: LORAZEPAM 2MG/ML CPJ IV PRN ×3 (04:04→19:52)
[2019-05-21] MEDS: DIPHENHYDRAMINE 50MG/ML VIAL IV SCH ×4 (04:06→23:00)
[2019-05-21] MEDS: IPRATROPIUM/ALBUTEROL 0.5-3(2.5)MG/3ML NEB HHN SCH ×6 (04:25→20:45)
[2019-05-21] MEDS: VALPROATE SODIUM 250MG/5ML UDC GT SCH ×3 (05:08→21:39)
[2019-05-21] MEDS: PIPERACILLIN/TAZOBACTAM 3.375 G in DEXT 5% WATER 100 ML IV SCH ×3 (05:08→17:38)
[2019-05-21 06:00] LABS: BASOPHILS % 0.1 % (0.0-2.0); EOSINOPHILS % 0.2 % (0.0-5.0); HEMATOCRIT. 37.8 % (42.0-52.0); HEMOGLOBIN. 12.2 g/dL (14.0-18.0); LYMPHOCYTES % 11.7 % (20.0-50.0); MEAN CORPUSCULAR HEMOGLOBIN 28.3 pg (28.0-32.0); MEAN PLATELET VOLUME 9.6 fl (7.4-10.4); PLATELET 264 x1000/uL (130-400); RED BLOOD CELL COUNT 4.29 mill/uL (4.7-6.1); RED CELL DISTRIBUTION WIDTH 15.4 % (11.6-14.6)
[2019-05-21 06:15] LABS: CHLORIDE 107 mEq/L (98-107)
[2019-05-21] MEDS: METHYLPREDNISOLONE SOD SUCC 40 MG/ML VIAL IV SCH (08:57)
[2019-05-21] MEDS: PANTOPRAZOLE SODIUM 40 MG/VIAL IV SCH ×2 (08:57→17:38)
[2019-05-21] MEDS: PHENYTOIN 100 MG/4 ML UDC NG SCH (08:57)
[2019-05-21 10:30] LABS: BG BASE EXCESS 2.4 mmol/L (-2.0-2.0); BG CARBOXYHEMOGLOBIN 0.3 % (0.5-1.5); BG DEOXYHEMOGLOBIN 12.7 % (0.0-5.0); BG FRACTION INSPIRED OXYGEN 100; BG HCO3 ACT 26.3 mmol/L (22.0-26.0); BG METHEMOGLOBIN 0.1 % (0.0-1.5); BG OXYGEN SATURATION 87.2 % (92.0-98.5); BG OXYHEMOGLOBIN 86.9 % (94.0-97.0); BG PCO2 38.3 mmHg (35.0-45.0); BG PH 7.455 (7.350-7.450); BG PO2 49.9 mmHg (75.0-100.0); BG SAMPLE SITE RIGHT BRACHIAL; BG TOTAL HEMOGLOBIN 12.3 g/dL (12.0-18.0); BG VENT MODE MASK - NRB
[2019-05-21] MEDS: METOCLOPRAMIDE HCL 10MG/2ML VIAL IV SCH ×2 (11:47→17:38)
[2019-05-21 13:48] LABS: BG BASE EXCESS 5.6 mmol/L (-2.0-2.0); BG DEOXYHEMOGLOBIN 8.1 % (0.0-5.0); BG FRACTION INSPIRED OXYGEN 100; BG HCO3 ACT 29.9 mmol/L (22.0-26.0); BG METHEMOGLOBIN 0.2 % (0.0-1.5); BG OXYGEN SATURATION 91.9 % (92.0-98.5); BG OXYHEMOGLOBIN 91.7 % (94.0-97.0); BG PCO2 42.4 mmHg (35.0-45.0); BG PH 7.466 (7.350-7.450); BG PO2 58.1 mmHg (75.0-100.0); BG SAMPLE SITE LEFT RADIAL; BG TOTAL HEMOGLOBIN 12.1 g/dL (12.0-18.0); BG VENT MODE VAPOTHERM
[2019-05-21] MEDS: ACETYLCYSTEINE 100MG/ML 10% VIAL 4ML INH SCH (15:31)
[2019-05-21 21:06] LABS: HEMATOCRIT 33.8 % (42.0-52.0)
[2019-05-22] VITALS (32 sets, daily range): BP systolic 98–192; BP diastolic 37–97
[2019-05-22] MEDS: ACETYLCYSTEINE 100MG/ML 10% VIAL 4ML INH SCH ×3 (00:20→16:10)
[2019-05-22] MEDS: IPRATROPIUM/ALBUTEROL 0.5-3(2.5)MG/3ML NEB HHN SCH ×6 (00:20→20:50)
[2019-05-22] MEDS: PIPERACILLIN/TAZOBACTAM 3.375 G in DEXT 5% WATER 100 ML IV SCH ×4 (01:14→17:04)
[2019-05-22] MEDS: MORPHINE SULFATE 2 MG/ML CPJ (NOT FOR IM USE) IV PRN (03:07)
[2019-05-22 04:54] LABS: BASOPHILS % 0.1 % (0.0-2.0); EOSINOPHILS % 6.2 % (0.0-5.0); HEMATOCRIT. 31.9 % (42.0-52.0); HEMOGLOBIN. 10.4 g/dL (14.0-18.0); LYMPHOCYTES % 11.3 % (20.0-50.0); MEAN CORPUSCULAR HEMOGLOBIN 28.4 pg (28.0-32.0); MEAN PLATELET VOLUME 8.7 fl (7.4-10.4); MONOCYTES % 10.2 % (2.0-8.0); NEUTROPHILS % 72.2 % (40.0-76.0); PLATELET 221 x1000/uL (130-400); RED BLOOD CELL COUNT 3.66 mill/uL (4.7-6.1); RED CELL DISTRIBUTION WIDTH 15.4 % (11.6-14.6)
[2019-05-22 05:03] LABS: CHLORIDE 106 mEq/L (98-107)
[2019-05-22] MEDS: DIPHENHYDRAMINE 50MG/ML VIAL IV SCH ×4 (06:10→23:23)
[2019-05-22] MEDS: METOCLOPRAMIDE HCL 10MG/2ML VIAL IV SCH ×5 (06:10→23:23)
[2019-05-22] MEDS: VALPROATE SODIUM 250MG/5ML UDC GT SCH ×3 (06:10→23:24)
[2019-05-22 09:28] LABS: BG CARBOXYHEMOGLOBIN 0.5 % (0.5-1.5); BG DEOXYHEMOGLOBIN 4.8 % (0.0-5.0); BG FRACTION INSPIRED OXYGEN 100; BG HCO3 ACT 25.6 mmol/L (22.0-26.0); BG METHEMOGLOBIN 0.1 % (0.0-1.5); BG OXYGEN SATURATION 95.2 % (92.0-98.5); BG OXYHEMOGLOBIN 94.6 % (94.0-97.0); BG PCO2 36.4 mmHg (35.0-45.0); BG PH 7.465 (7.350-7.450); BG PO2 72.6 mmHg (75.0-100.0); BG SAMPLE SITE LEFT RADIAL; BG VENT MODE VAPOTHERM
[2019-05-22] MEDS: PANTOPRAZOLE SODIUM 40 MG/VIAL IV SCH ×2 (09:45→17:04)
[2019-05-22] MEDS: PHENYTOIN 100 MG/4 ML UDC NG SCH (09:45)
[2019-05-22] MEDS: LORAZEPAM 2MG/ML CPJ IV PRN ×2 (09:48→20:15)
[2019-05-22] MEDS: SODIUM CHLORIDE 0.9% 1,000 ML IV SCH (11:10)
[2019-05-22] MEDS: ONDANSETRON HCL 4MG/2ML INJ IV PRN (17:04)
[2019-05-23] VITALS (26 sets, daily range): BP systolic 103–164; BP diastolic 52–105
[2019-05-23] MEDS: ACETYLCYSTEINE 100MG/ML 10% VIAL 4ML INH SCH ×3 (00:46→16:36)
[2019-05-23] MEDS: IPRATROPIUM/ALBUTEROL 0.5-3(2.5)MG/3ML NEB HHN SCH ×6 (00:46→20:48)
[2019-05-23] MEDS: VALPROATE SODIUM 250MG/5ML UDC GT SCH ×3 (05:00→22:03)
[2019-05-23] MEDS: DIPHENHYDRAMINE 50MG/ML VIAL IV SCH ×4 (05:00→22:03)
[2019-05-23] MEDS: SODIUM CHLORIDE 0.9% 1,000 ML IV SCH ×2 (05:01→22:33)
[2019-05-23] MEDS: MORPHINE SULFATE 2 MG/ML CPJ (NOT FOR IM USE) IV PRN (05:02)
[2019-05-23 05:10] LABS: BASOPHILS % 0.4 % (0.0-2.0); EOSINOPHILS % 4.9 % (0.0-5.0); HEMATOCRIT. 34.8 % (42.0-52.0); HEMOGLOBIN. 11.2 g/dL (14.0-18.0); MEAN CORPUSCULAR HEMOGLOBIN 28.1 pg (28.0-32.0); MEAN CORPUSCULAR VOLUME 87.3 fL (80.0-94.0); MONOCYTES % 12.4 % (2.0-8.0); NEUTROPHILS % 74.3 % (40.0-76.0); PLATELET 263 x1000/uL (130-400); RED BLOOD CELL COUNT 3.98 mill/uL (4.7-6.1); RED CELL DISTRIBUTION WIDTH 15.5 % (11.6-14.6)
[2019-05-23 05:18] LABS: CHLORIDE 104 mEq/L (98-107)
[2019-05-23] MEDS: METOCLOPRAMIDE HCL 10MG/2ML VIAL IV SCH ×4 (05:30→23:18)
[2019-05-23] MEDS: PHENYTOIN 100 MG/4 ML UDC NG SCH (08:51)
[2019-05-23] MEDS: PANTOPRAZOLE SODIUM 40 MG/VIAL IV SCH ×2 (08:51→16:50)
[2019-05-23 12:09] LABS: BG BASE EXCESS 5.1 mmol/L (-2.0-2.0); BG CARBOXYHEMOGLOBIN 0.6 % (0.5-1.5); BG DEOXYHEMOGLOBIN 12.2 % (0.0-5.0); BG FRACTION INSPIRED OXYGEN 97; BG HCO3 ACT 28.2 mmol/L (22.0-26.0); BG METHEMOGLOBIN 0.2 % (0.0-1.5); BG OXYGEN SATURATION 87.7 % (92.0-98.5); BG PCO2 35.9 mmHg (35.0-45.0); BG PH 7.513 (7.350-7.450); BG PO2 49.7 mmHg (75.0-100.0); BG SAMPLE SITE LEFT RADIAL; BG TOTAL HEMOGLOBIN 11.6 g/dL (12.0-18.0); BG VENT MODE VAPOTHERM
[2019-05-23 12:54] LABS: BG BASE EXCESS 4.6 mmol/L (-2.0-2.0); BG CARBOXYHEMOGLOBIN 0.3 % (0.5-1.5); BG DEOXYHEMOGLOBIN 4.1 % (0.0-5.0); BG FRACTION INSPIRED OXYGEN 97; BG HCO3 ACT 27.4 mmol/L (22.0-26.0); BG METHEMOGLOBIN 0.2 % (0.0-1.5); BG OXYGEN SATURATION 95.9 % (92.0-98.5); BG OXYHEMOGLOBIN 95.4 % (94.0-97.0); BG PCO2 34.3 mmHg (35.0-45.0); BG PO2 76.7 mmHg (75.0-100.0); BG SAMPLE SITE LEFT RADIAL; BG TOTAL HEMOGLOBIN 11.3 g/dL (12.0-18.0); BG VENT MODE VAPOTHERM
[2019-05-23] MEDS: LORAZEPAM 2MG/ML CPJ IV PRN ×2 (19:46→23:18)
[2019-05-23] MEDS: ONDANSETRON HCL 4MG/2ML INJ IV PRN (23:18)
[2019-05-24] VITALS (76 sets, daily range): BP systolic 68–156; BP diastolic 44–106
[2019-05-24] MEDS: IPRATROPIUM/ALBUTEROL 0.5-3(2.5)MG/3ML NEB HHN SCH ×6 (00:45→20:53)
[2019-05-24] MEDS: ACETYLCYSTEINE 100MG/ML 10% VIAL 4ML INH SCH ×3 (00:46→15:33)
[2019-05-24 04:46] LABS: HEMOGLOBIN. 10.7 g/dL (14.0-18.0); MEAN CORPUSCULAR HEMOGLOBIN 29.2 pg (28.0-32.0); MEAN CORPUSCULAR VOLUME 87.6 fL (80.0-94.0); MEAN PLATELET VOLUME 8.3 fl (7.4-10.4); PLATELET 294 x1000/uL (130-400); RED BLOOD CELL COUNT 3.66 mill/uL (4.7-6.1); RED CELL DISTRIBUTION WIDTH 15.5 % (11.6-14.6)
[2019-05-24 04:55] LABS: CHLORIDE 107 mEq/L (98-107)
[2019-05-24] MEDS: VALPROATE SODIUM 250MG/5ML UDC GT SCH ×3 (05:16→22:48)
[2019-05-24] MEDS: METOCLOPRAMIDE HCL 10MG/2ML VIAL IV SCH ×3 (05:16→18:00)
[2019-05-24] MEDS: ONDANSETRON HCL 4MG/2ML INJ IV PRN (05:16)
[2019-05-24] MEDS: DIPHENHYDRAMINE 50MG/ML VIAL IV SCH ×4 (05:18→22:53)
[2019-05-24] MEDS: LORAZEPAM 2MG/ML CPJ IV PRN (06:32)
[2019-05-24] MEDS: PHENYTOIN 100 MG/4 ML UDC NG SCH (09:00)
[2019-05-24] MEDS: PANTOPRAZOLE SODIUM 40 MG/VIAL IV SCH ×2 (09:24→18:00)
[2019-05-24 10:12] LABS: BG BASE EXCESS 1.8 mmol/L (-2.0-2.0); BG CARBOXYHEMOGLOBIN 0.5 % (0.5-1.5); BG DEOXYHEMOGLOBIN 9.2 % (0.0-5.0); BG FRACTION INSPIRED OXYGEN 98; BG HCO3 ACT 26.5 mmol/L (22.0-26.0); BG METHEMOGLOBIN 0.3 % (0.0-1.5); BG OXYGEN SATURATION 90.7 % (92.0-98.5); BG PCO2 41.8 mmHg (35.0-45.0); BG SAMPLE SITE RIGHT RADIAL; BG TOTAL HEMOGLOBIN 11.2 g/dL (12.0-18.0); BG VENT MODE VAPOTHERM
[2019-05-24] MEDS ORDERED: SODIUM CHLORIDE 0.9% 250 ML IV ONE (10:15)
[2019-05-24] MEDS: NOREPINEPHRINE 16 MG in DEXT 5% WATER 234 ML IV PRN (11:31)
[2019-05-24] MEDS: SODIUM CHLORIDE 0.9% 1,000 ML IV SCH (11:32)
[2019-05-24] MEDS ORDERED: NA PHOS,M-B/NA PHOS,DI-BA ENEMA 118ML PR NR (11:45)
[2019-05-24] MEDS ORDERED: MAGNESIUM HYDROXIDE 400MG/5ML 30ML UDC PO PRN (11:45)
[2019-05-24 14:37] LABS: PLATELET ESTIMATE NORMAL
[2019-05-24 15:26] LABS: BG BASE EXCESS -1.7 mmol/L (-2.0-2.0); BG BILEVEL POS AIRWAY PRESSURE 15/7; BG CARBOXYHEMOGLOBIN 0.3 % (0.5-1.5); BG DEOXYHEMOGLOBIN 13.1 % (0.0-5.0); BG FRACTION INSPIRED OXYGEN 100; BG HCO3 ACT 23.1 mmol/L (22.0-26.0); BG METHEMOGLOBIN 0.3 % (0.0-1.5); BG OXYGEN SATURATION 86.8 % (92.0-98.5); BG OXYHEMOGLOBIN 86.3 % (94.0-97.0); BG PCO2 39.3 mmHg (35.0-45.0); BG PH 7.387 (7.350-7.450); BG PO2 54.3 mmHg (75.0-100.0); BG SAMPLE SITE RIGHT RADIAL; BG TOTAL HEMOGLOBIN 10.7 g/dL (12.0-18.0); BG VENT MODE MASK - BIPAP; BG VENT RATE 18 set
[2019-05-24 15:40] LABS: HEMATOCRIT 33.3 % (42.0-52.0); HEMOGLOBIN 10.4 g/dL (14.0-18.0)
[2019-05-24] MEDS ORDERED: MIDAZOLAM HCL 50 MG in DEXTROSE 5% WATER 40 ML IV PRN (16:30)
[2019-05-24 16:42] LABS: BG CARBOXYHEMOGLOBIN 0.3 % (0.5-1.5); BG DEOXYHEMOGLOBIN 11.3 % (0.0-5.0); BG FRACTION INSPIRED OXYGEN 100; BG HCO3 ACT 24.6 mmol/L (22.0-26.0); BG METHEMOGLOBIN 0.2 % (0.0-1.5); BG OXYGEN SATURATION 88.6 % (92.0-98.5); BG OXYHEMOGLOBIN 88.2 % (94.0-97.0); BG PCO2 44.8 mmHg (35.0-45.0); BG PH 7.357 (7.350-7.450); BG PO2 59.6 mmHg (75.0-100.0); BG SAMPLE SITE RIGHT RADIAL; BG TIDAL VOLUME(mL) 500 mL; BG TOTAL HEMOGLOBIN 10.8 g/dL (12.0-18.0); BG VENT MODE VENT - A/C; BG VENT RATE 14 set
[2019-05-24] MEDS ORDERED: NOREPINEPHRINE 32 MG in DEXT 5% WATER 468 ML IV PRN (20:10)
[2019-05-24] MEDS ORDERED: MIDAZOLAM HCL 100 MG in DEXTROSE 5% WATER 80 ML IV PRN (20:10)
[2019-05-24] MEDS: GUAIFENESIN 600MG ER TABLET PO SCH (21:00)
[2019-05-25] VITALS (97 sets, daily range): BP systolic 83–150; BP diastolic 38–95
[2019-05-25] MEDS: METOCLOPRAMIDE HCL 10MG/2ML VIAL IV SCH ×5 (00:25→23:08)
[2019-05-25] MEDS: CEFEPIME 2,000 MG in DEXT 5% WATER 100 ML IV SCH ×3 (00:40→23:09)
[2019-05-25] MEDS: MIDAZOLAM HCL 100 MG in DEXT 5% WATER 80 ML IV PRN ×2 (00:44→17:51)
[2019-05-25] MEDS: ACETYLCYSTEINE 100MG/ML 10% VIAL 4ML INH SCH ×3 (00:50→16:30)
[2019-05-25] MEDS: IPRATROPIUM/ALBUTEROL 0.5-3(2.5)MG/3ML NEB HHN SCH ×6 (00:50→20:33)
[2019-05-25] MEDS: SODIUM CHLORIDE 0.9% 1,000 ML IV SCH ×2 (02:17→17:51)
[2019-05-25] MEDS: VALPROATE SODIUM 250MG/5ML UDC GT SCH ×3 (05:12→21:32)
[2019-05-25] MEDS: DIPHENHYDRAMINE 50MG/ML VIAL IV SCH (05:12)
[2019-05-25 06:26] LABS: CHLORIDE 111 mEq/L (98-107)
[2019-05-25 07:02] LABS: HEMATOCRIT. 29.2 % (42.0-52.0); HEMOGLOBIN. 9.2 g/dL (14.0-18.0); MEAN CORPUSCULAR HEMOGLOBIN 28.1 pg (28.0-32.0); MEAN CORPUSCULAR VOLUME 89.2 fL (80.0-94.0); MEAN PLATELET VOLUME 8.9 fl (7.4-10.4); PLATELET 234 x1000/uL (130-400); RED BLOOD CELL COUNT 3.28 mill/uL (4.7-6.1); RED CELL DISTRIBUTION WIDTH 15.7 % (11.6-14.6)
[2019-05-25 08:54] LABS: PLATELET ESTIMATE NORMAL
[2019-05-25] MEDS: GUAIFENESIN 600MG ER TABLET PO SCH (09:00)
[2019-05-25 09:03] LABS: BG BASE EXCESS 0.1 mmol/L (-2.0-2.0); BG CARBOXYHEMOGLOBIN 0.1 % (0.5-1.5); BG DEOXYHEMOGLOBIN 1.3 % (0.0-5.0); BG FRACTION INSPIRED OXYGEN 80; BG HCO3 ACT 24.7 mmol/L (22.0-26.0); BG METHEMOGLOBIN 0.4 % (0.0-1.5); BG OXYGEN SATURATION 98.7 % (92.0-98.5); BG OXYHEMOGLOBIN 98.2 % (94.0-97.0); BG PH 7.409 (7.350-7.450); BG PO2 148.1 mmHg (75.0-100.0); BG SAMPLE SITE RIGHT RADIAL; BG TIDAL VOLUME(mL) 500 mL; BG TOTAL HEMOGLOBIN 10.5 g/dL (12.0-18.0); BG VENT MODE VENT - A/C; BG VENT RATE 14 set
[2019-05-25] MEDS: PHENYTOIN 100 MG/4 ML UDC NG SCH (09:30)
[2019-05-25] MEDS: PANTOPRAZOLE SODIUM 40 MG/VIAL IV SCH ×2 (09:30→17:49)
[2019-05-26] VITALS (66 sets, daily range): BP systolic 75–159; BP diastolic 39–106
[2019-05-26] MEDS: ACETYLCYSTEINE 100MG/ML 10% VIAL 4ML INH SCH ×3 (00:23→15:43)
[2019-05-26] MEDS: IPRATROPIUM/ALBUTEROL 0.5-3(2.5)MG/3ML NEB HHN SCH ×6 (00:23→20:15)
[2019-05-26] MEDS: METOCLOPRAMIDE HCL 10MG/2ML VIAL IV SCH ×3 (05:43→21:29)
[2019-05-26] MEDS: VALPROATE SODIUM 250MG/5ML UDC GT SCH ×3 (05:43→21:28)
[2019-05-26 05:44] LABS: BASOPHILS % 0.5 % (0.0-2.0); EOSINOPHILS % 1.9 % (0.0-5.0); HEMOGLOBIN. 8.3 g/dL (14.0-18.0); LYMPHOCYTES % 8.1 % (20.0-50.0); MEAN CORPUSCULAR HEMOGLOBIN 28.8 pg (28.0-32.0); MEAN CORPUSCULAR VOLUME 86.9 fL (80.0-94.0); MEAN PLATELET VOLUME 8.5 fl (7.4-10.4); NEUTROPHILS % 79.5 % (40.0-76.0); PLATELET 233 x1000/uL (130-400); RED BLOOD CELL COUNT 2.88 mill/uL (4.7-6.1); RED CELL DISTRIBUTION WIDTH 15.4 % (11.6-14.6)
[2019-05-26 05:50] LABS: CHLORIDE 106 mEq/L (98-107)
[2019-05-26] MEDS ORDERED: POTASSIUM CHLORIDE 20MEQ/PACKET PO NR (07:52)
[2019-05-26] MEDS ORDERED: POTASSIUM CHLORIDE 20MEQ TABLET SR PO SCH (08:00)
[2019-05-26] MEDS: PHENYTOIN 100 MG/4 ML UDC NG SCH (08:08)
[2019-05-26] MEDS: PANTOPRAZOLE SODIUM 40 MG/VIAL IV SCH ×2 (08:08→19:02)
[2019-05-26 08:36] LABS: BG BASE EXCESS 8.1 mmol/L (-2.0-2.0); BG CARBOXYHEMOGLOBIN 0.2 % (0.5-1.5); BG DEOXYHEMOGLOBIN 2.8 % (0.0-5.0); BG FRACTION INSPIRED OXYGEN 98; BG HCO3 ACT 30.6 mmol/L (22.0-26.0); BG METHEMOGLOBIN 1.5 % (0.0-1.5); BG OXYGEN SATURATION 97.2 % (92.0-98.5); BG OXYHEMOGLOBIN 95.5 % (94.0-97.0); BG PCO2 34.5 mmHg (35.0-45.0); BG PH 7.566 (7.350-7.450); BG PO2 93.4 mmHg (75.0-100.0); BG SAMPLE SITE LEFT RADIAL; BG TOTAL HEMOGLOBIN 9.1 g/dL (12.0-18.0); BG VENT MODE MASK - AEROSOL
[2019-05-26] MEDS ORDERED: POTASSIUM CHLORIDE INJ 40 MEQ in DEXT 5% WATER 250 ML IV SCH (09:00)
[2019-05-26] MEDS: CEFEPIME 2,000 MG in DEXT 5% WATER 100 ML IV SCH ×2 (11:22→23:12)
[2019-05-26] MEDS: SODIUM CHLORIDE 0.9% 1,000 ML IV SCH (20:48)
[2019-05-26] MEDS ORDERED: POTASSIUM CHLORIDE 20MEQ TABLET SR PO NR (21:45)
[2019-05-27] VITALS (18 sets, daily range): BP systolic 97–156; BP diastolic 51–84
[2019-05-27] MEDS: ACETYLCYSTEINE 100MG/ML 10% VIAL 4ML INH SCH ×3 (00:51→15:42)
[2019-05-27] MEDS: IPRATROPIUM/ALBUTEROL 0.5-3(2.5)MG/3ML NEB HHN SCH ×6 (00:51→21:12)
[2019-05-27] MEDS: VALPROATE SODIUM 250MG/5ML UDC GT SCH ×3 (06:11→22:55)
[2019-05-27] MEDS: METOCLOPRAMIDE HCL 10MG/2ML VIAL IV SCH ×3 (06:11→22:55)
[2019-05-27] MEDS ORDERED: DEXTROSE 50% WATER 50ML SYRINGE IV PRN (06:15)
[2019-05-27 06:21] LABS: BASOPHILS % 0.4 % (0.0-2.0); EOSINOPHILS % 3.2 % (0.0-5.0); HEMATOCRIT. 25.7 % (42.0-52.0); HEMOGLOBIN. 8.5 g/dL (14.0-18.0); LYMPHOCYTES % 12.1 % (20.0-50.0); MEAN CORPUSCULAR HEMOGLOBIN 28.4 pg (28.0-32.0); MEAN CORPUSCULAR VOLUME 86.1 fL (80.0-94.0); MEAN PLATELET VOLUME 8.1 fl (7.4-10.4); MONOCYTES % 11.1 % (2.0-8.0); NEUTROPHILS % 73.2 % (40.0-76.0); PLATELET 252 x1000/uL (130-400); RED BLOOD CELL COUNT 2.99 mill/uL (4.7-6.1); RED CELL DISTRIBUTION WIDTH 15.4 % (11.6-14.6)
[2019-05-27 06:23] LABS: CHLORIDE 106 mEq/L (98-107)
[2019-05-27] MEDS: BLOOD SUGAR DIAGNOSTIC STRIP TEST SCH ×3 (06:34→18:16)
[2019-05-27] MEDS ORDERED: INSULIN LISPRO 100 UNITS/ML SUBCUT SCH (07:20)
[2019-05-27] MEDS: PANTOPRAZOLE SODIUM 40 MG/VIAL IV SCH ×2 (08:39→16:30)
[2019-05-27] MEDS: PHENYTOIN 100 MG/4 ML UDC NG SCH (09:43)
[2019-05-27] MEDS: INSULIN LISPRO 100 UNITS/ML SUBCUT SCH ×2 (12:00→18:00)
[2019-05-27] MEDS: SODIUM CHLORIDE 0.9% 1,000 ML IV SCH (13:00)
[2019-05-27] MEDS: CEFEPIME 2,000 MG in DEXT 5% WATER 100 ML IV SCH (13:00)
[2019-05-27] MEDS: LORAZEPAM 2MG/ML CPJ IV PRN (16:46)
[2019-05-28] VITALS (12 sets, daily range): BP systolic 106–134; BP diastolic 37–100
[2019-05-28] MEDS: SODIUM CHLORIDE 0.9% 1,000 ML IV SCH ×2 (00:11→17:45)
[2019-05-28] MEDS: BLOOD SUGAR DIAGNOSTIC STRIP TEST SCH ×4 (00:11→17:52)
[2019-05-28] MEDS: CEFEPIME 2,000 MG in DEXT 5% WATER 100 ML IV SCH ×2 (00:24→12:02)
[2019-05-28] MEDS: IPRATROPIUM/ALBUTEROL 0.5-3(2.5)MG/3ML NEB HHN SCH ×6 (01:15→20:30)
[2019-05-28] MEDS: ACETYLCYSTEINE 100MG/ML 10% VIAL 4ML INH SCH ×2 (01:15→09:13)
[2019-05-28 05:16] LABS: BASOPHILS % 0.9 % (0.0-2.0); EOSINOPHILS % 4.3 % (0.0-5.0); HEMATOCRIT. 27.4 % (42.0-52.0); HEMOGLOBIN. 9.1 g/dL (14.0-18.0); LYMPHOCYTES % 15.1 % (20.0-50.0); MEAN CORPUSCULAR HEMOGLOBIN 28.5 pg (28.0-32.0); MEAN CORPUSCULAR VOLUME 86.2 fL (80.0-94.0); MEAN PLATELET VOLUME 8.3 fl (7.4-10.4); MONOCYTES % 10.9 % (2.0-8.0); NEUTROPHILS % 68.8 % (40.0-76.0); PLATELET 275 x1000/uL (130-400); RED BLOOD CELL COUNT 3.18 mill/uL (4.7-6.1); RED CELL DISTRIBUTION WIDTH 15.6 % (11.6-14.6)
[2019-05-28 05:25] LABS: CHLORIDE 106 mEq/L (98-107)
[2019-05-28] MEDS: INSULIN LISPRO 100 UNITS/ML SUBCUT SCH ×4 (05:36→17:52)
[2019-05-28] MEDS: VALPROATE SODIUM 250MG/5ML UDC GT SCH ×3 (06:40→23:07)
[2019-05-28] MEDS: METOCLOPRAMIDE HCL 10MG/2ML VIAL IV SCH ×3 (06:43→21:08)
[2019-05-28] MEDS ORDERED: POTASSIUM CHLORIDE 20MEQ/PACKET PO NR (08:45)
[2019-05-28] MEDS: PHENYTOIN 100 MG/4 ML UDC NG SCH (09:48)
[2019-05-28] MEDS: PANTOPRAZOLE SODIUM 40 MG/VIAL IV SCH ×2 (09:48→17:44)
[2019-05-28] MEDS: LORAZEPAM 2MG/ML CPJ IV PRN ×2 (09:48→18:41)
[2019-05-29] VITALS (11 sets, daily range): BP systolic 109–144; BP diastolic 58–78
[2019-05-29] MEDS: IPRATROPIUM/ALBUTEROL 0.5-3(2.5)MG/3ML NEB HHN SCH ×5 (00:27→15:57)
[2019-05-29] MEDS: BLOOD SUGAR DIAGNOSTIC STRIP TEST SCH ×4 (00:33→18:01)
[2019-05-29] MEDS: CEFEPIME 2,000 MG in DEXT 5% WATER 100 ML IV SCH ×2 (00:36→11:00)
[2019-05-29] MEDS: INSULIN LISPRO 100 UNITS/ML SUBCUT SCH ×4 (05:03→18:00)
[2019-05-29] MEDS: METOCLOPRAMIDE HCL 10MG/2ML VIAL IV SCH ×2 (05:24→13:36)
[2019-05-29] MEDS: VALPROATE SODIUM 250MG/5ML UDC GT SCH ×2 (05:34→13:35)
[2019-05-29] MEDS: SODIUM CHLORIDE 0.9% 1,000 ML IV SCH (06:37)
[2019-05-29 07:25] LABS: BASOPHILS % 1.2 % (0.0-2.0); EOSINOPHILS % 2.9 % (0.0-5.0); HEMATOCRIT. 29.2 % (42.0-52.0); HEMOGLOBIN. 9.4 g/dL (14.0-18.0); MEAN CORPUSCULAR HEMOGLOBIN 28.2 pg (28.0-32.0); MEAN CORPUSCULAR VOLUME 87.1 fL (80.0-94.0); MEAN PLATELET VOLUME 9.8 fl (7.4-10.4); MONOCYTES % 12.5 % (2.0-8.0); NEUTROPHILS % 65.4 % (40.0-76.0); PLATELET 176 x1000/uL (130-400); RED BLOOD CELL COUNT 3.35 mill/uL (4.7-6.1)
[2019-05-29 07:49] LABS: CHLORIDE 109 mEq/L (98-107)
[2019-05-29] MEDS: PANTOPRAZOLE SODIUM 40 MG/VIAL IV SCH ×2 (08:27→16:11)
[2019-05-29] MEDS: PHENYTOIN 100 MG/4 ML UDC NG SCH (08:27)
== END 2019-05-29 19:00 | DRG 870 ==
LOC: ER 08:30 → EDBEDREQ 08:44 → MICUSO 11:56 → EDBEDREQ 12:00 → ENRESERV 14:00 → 3WST 05-27 03:35
PROVIDERS: ADMIT Internal Medicine; ATTEND Internal Medicine
PROC: 05HY33Z Insertion of Infusion Device into Upper Vein, Percutaneous Approach (ICD-10-PCS; 2019-05-15)
PROC: B54MZZA Ultrasonography of Right Upper Extremity Veins, Guidance (ICD-10-PCS; 2019-05-15)
PROC: 30233K1 Transfusion of Nonautologous Frozen Plasma into Peripheral Vein, Percutaneous Approach (ICD-10-PCS; 2019-05-15)
PROC: 30233N1 Transfusion of Nonautologous Red Blood Cells into Peripheral Vein, Percutaneous Approach (ICD-10-PCS; 2019-05-15)
PROC: 0DB68ZX Excision of Stomach, Via Natural or Artificial Opening Endoscopic, Diagnostic (ICD-10-PCS; 2019-05-19)
PROC: 5A1955Z Respiratory Ventilation, Greater than 96 Consecutive Hours (ICD-10-PCS; principal; 2019-05-23)
PROC: 0BH17EZ Insertion of Endotracheal Airway into Trachea, Via Natural or Artificial Opening (ICD-10-PCS; 2019-05-23)
DX: A41.9 Sepsis, unspecified organism (principal); J96.00 Acute respiratory failure, unspecified whether with hypoxia or hypercapnia; J69.0 Pneumonitis due to inhalation of food and vomit; R57.8 Other shock; R65.21 Severe sepsis with septic shock; K29.61 Other gastritis with bleeding; K29.71 Gastritis, unspecified, with bleeding; E44.0 Moderate protein-calorie malnutrition; G93.40 Encephalopathy, unspecified; B37.0 Candidal stomatitis; K31.1 Adult hypertrophic pyloric stenosis; K90.9 Intestinal malabsorption, unspecified; T17.890A Other foreign object in other parts of respiratory tract causing asphyxiation, initial encounter; Z99.11 Dependence on respirator [ventilator] status; J44.9 Chronic obstructive pulmonary disease, unspecified; G40.909 Epilepsy, unspecified, not intractable, without status epilepticus; R47.02 Dysphasia; G80.9 Cerebral palsy, unspecified; E11.65 Type 2 diabetes mellitus with hyperglycemia; D64.9 Anemia, unspecified; K44.9 Diaphragmatic hernia without obstruction or gangrene; K56.41 Fecal impaction; X58.XXXA Exposure to other specified factors, initial encounter; Y93.89 Activity, other specified; Z79.4 Long term (current) use of insulin; Y92.89 Other specified places as the place of occurrence of the external cause; Y99.8 Other external cause status; Z68.20 Body mass index [BMI] 20.0-20.9, adult
CPT/HCPCS: 36415; 36600; 70491; 71045; 74018; 76937; 80048; 80061; 80185; 80202; 80305; 81003; 82375; 82550; 82553; 82805; 82962; 83036; 83735; 83880; 84100; 84132; 84145; 84443; 84484; 85014; 85018; 85384; 86850; 86900; 86920; 86927; 87070; 88305; 88313; 92950; 93005; 93970; 94002; 94003; 94640; 94660; 94667; 96374; 97161; 97167; 99291; A6261; C1725; C9113; J0692; J1200; J2060; J2250; J2270; J2405; J2543; J2704; J2765; J2920; J2930; J3010; J3370; J3480; J3490; J7030; J7060; J7608; J7620; P9016; P9017; Q9967